=== PATIENT | female | born 1955 | race Hispanic/Latino ===

== ENCOUNTER 2018-02-22 16:35 | Emergency (ER) | payer MEDICAID, OTHER ==
--- NOTE | 2018-02-22 17:43 | RAD ---
CHEST PA AND LATERAL TWO VIEWS: 02/22/18 HISTORY: 62-year-old female with history of cough, congestion, and back pain. COMPARISON: None. FINDINGS: Heart size is within normal limits. The lungs are clear. No pneumonia, edema, or pleural effusion. IMPRESSION: Atherosclerosis of the aorta. No acute intrathoracic disease. POS: [facility]
== END 2018-02-22 18:20 | disposition home or self-care (01) ==
LOC: ERS 16:35
DX: J06.9 Acute upper respiratory infection, unspecified (principal); E11.9 Type 2 diabetes mellitus without complications; I10 Essential (primary) hypertension; E78.5 Hyperlipidemia, unspecified
CPT/HCPCS: 71046

== ENCOUNTER 2018-03-23 09:28 | Emergency (ER) | payer MEDICAID, OTHER ==
[2018-03-23] MEDS ORDERED: Lidocaine 4% Cream 5 GM TUBE w/ Tegaderm ONE (09:56)
[2018-03-23] MEDS ORDERED: traMADol HCl 50 MG TAB ONE (11:18)
== END 2018-03-23 11:21 | disposition home or self-care (01) ==
LOC: ERS 09:28
DX: L03.011 Cellulitis of right finger (principal)
CPT/HCPCS: 26010

== ENCOUNTER 2018-08-23 23:07 | Emergency (ER) | payer OTHER ==
[2018-08-23 23:34] LABS: Bilirubin Negative (Negative); Blood, Urine Large (Negative); Clarity CLOUDY (Clear); Glucose, Urine (Dipstick) 250 mg/dL (Negative); Leukocyte Large (Negative); Nitrite Positive (Negative); Protein, Urine (Dipstick) 100 mg/dL (Neg-Trace); Specific Gravity, Urine 1.007 (1.002-1.036); pH, Urine 6.5 (5.0-9.0)
[2018-08-23 23:37] LABS: Bacteria/HPF Rare-Few HPF (None Seen); Hyaline Casts/LPF 4-6 HYALINE CAST LPF (0-3 Hyaline)
[2018-08-23] MEDS ORDERED: cefTRIAXone\\ROCEPHIN 1 GM VIAL ONE (23:43)
[2018-08-23] MEDS ORDERED: Lidocaine 1% PF 5 ML VIAL ONE (23:45)
[2018-08-23] MEDS ORDERED: Phenazopyridine HCl 97.5 MG TABLET ONE (23:47)
[2018-08-23 23:56] LABS: #Eosinphils 0.1 thou/uL (0.0-0.7); #Lymphocytes 1.5 thou/uL (1.20-3.40); #Monocytes 0.7 thou/uL (0.11-0.59); #Neutrophils 6.2 thou/uL (1.40-6.50); %Basophils 0.5 % (0.0-1.0); %Eosinophils 1.7 % (0.0-10.0); %Lymphocytes 17.1 % (21.0-51.0); %Monocytes 7.9 % (0.0-10.0); %Neutrophils 72.8 % (42.0-75.0); Hemoglobin 12.6 g/dL (12.0-16.0); Mean Corpuscular Volume 85.4 fL (78.0-98.0); Mean Platelet Volume 6.9 fL (7.4-10.4); Platelet Count 235 thou/uL (130-400); RBC Distribution Width 11.8 % (11.5-14.5); Red Blood Cell (RBC) Count 4.33 mill/uL (4.20-5.40); White Blood Cell (WBC) Count 8.5 thou/uL (4.8-10.8)
[2018-08-24 00:16] LABS: ALT (SGPT) 23 U/L (8-55); AST (SGOT) 28 U/L (5-34); Albumin 3.8 g/dL (3.4-4.8); Alkaline Phosphatase 81 U/L (40-150); Anion Gap 15 mmol/L (10-20); BUN (Urea Nitrogen) 17 mg/dL (9.8-20.1); Bilirubin, Total 0.3 mg/dL (0.2-1.2); Calc. Creatinine Clearance 0 mL/min (70-130); Calcium 8.9 mg/dL (7.8-10.44); Carbon Dioxide 19 mmol/L (23-31); Chloride 98 mmol/L (98-107); Estimated GFR-MDRD 75; Globulin 3.8 g/dL (2.4-3.5); Glucose 263 mg/dL (80-115); Lipase 22 U/L (8-78); Potassium 3.9 mmol/L (3.5-5.1); Protein, Total 7.6 g/dL (6.0-8.3); Sodium 128 mmol/L (136-145)
== END 2018-08-24 00:47 | disposition home or self-care (01) ==
LOC: ERS 23:07
DX: N39.0 Urinary tract infection, site not specified (principal); E78.00 Pure hypercholesterolemia, unspecified; E11.9 Type 2 diabetes mellitus without complications; Z79.899 Other long term (current) drug therapy
CPT/HCPCS: 36415; 80053; 81003; 81015; 83690; 85025; 87086; 96372; J0696; J2001

== ENCOUNTER 2018-10-25 00:15 | Emergency (ER) | payer OTHER ==
[2018-10-25 01:12] LABS: Bilirubin Negative (Negative); Blood, Urine Small (Negative); Clarity CLEAR (Clear); Glucose, Urine (Dipstick) Negative (Negative); Leukocyte Moderate (Negative); Nitrite Negative (Negative); Protein, Urine (Dipstick) Negative (Neg-Trace); Urobilinogen 0.2 mg/dL (0.2-1.0)
[2018-10-25 01:13] LABS: Pathc Cast-AUWi Flag 0.29 (0-2.49)
[2018-10-25 01:30] LABS: RBC/HPF 0-3 HPF (0-3); Specific Gravity, Urine 1.002 (1.002-1.036); Squamous Epithelial 0-3 HPF (0-3)
[2018-10-25 01:31] LABS: Bacteria/HPF None Seen HPF (None Seen); Hyaline Casts/LPF NONE SEEN LPF (0-3 Hyaline); Renal Epithelial None Seen HPF (0-3); Transitional Epithelial NONE SEEN HPF (0-3)
== END 2018-10-25 02:30 | disposition home or self-care (01) ==
LOC: ERS 00:15
DX: N30.90 Cystitis, unspecified without hematuria (principal); E11.9 Type 2 diabetes mellitus without complications; E78.5 Hyperlipidemia, unspecified; Z79.4 Long term (current) use of insulin
CPT/HCPCS: 81003; 81015; 87086; 99283

== ENCOUNTER 2021-09-10 02:02 | Emergency (ER) | payer OTHER ==
[2021-09-10 03:24] LABS: Bacteria/HPF 3+ HPF (None Seen); Bilirubin Negative (Negative); Blood, Urine Trace (Negative); Clarity Turbid (Clear); Glucose, Urine (Dipstick) Normal (Negative); Ketone, Urine Negative (Negative); Leukocyte 500 Leu/uL (Negative); Nitrite Negative (Negative); Protein, Urine (Dipstick) Negative (Neg-Trace); RBC/HPF 0-3 HPF (0-3); Specific Gravity, Urine 1.003 (1.002-1.036); Squamous Epithelial 0-3 HPF (0-3); Urobilinogen Normal mg/dL (Less than 2); WBC/HPF Greater than 50 HPF (0-3)
[2021-09-10] MEDS ORDERED: Ciprofloxacin 500 MG TAB ONE (03:44)
[2021-09-10] MEDS ORDERED: Phenazopyridine HCl 100 MG TAB PO SCH (04:00)
== END 2021-09-10 04:07 | disposition home or self-care (01) ==
LOC: ERS 02:02
DX: N30.01 Acute cystitis with hematuria (principal); E11.9 Type 2 diabetes mellitus without complications; E78.5 Hyperlipidemia, unspecified; E78.00 Pure hypercholesterolemia, unspecified
CPT/HCPCS: 81003; 81015; 87077; 87086; 87186; 99284

== ENCOUNTER 2022-03-18 11:18 | Emergency (ER) | payer MEDICARE, OTHER, MEDICAID | END 2022-03-18 12:23 | disposition home or self-care (01) | LOC: ERS 11:18 | DX: K02.9 Dental caries, unspecified (principal); E11.9 Type 2 diabetes mellitus without complications; I10 Essential (primary) hypertension; E78.5 Hyperlipidemia, unspecified; E78.00 Pure hypercholesterolemia, unspecified; Z79.4 Long term (current) use of insulin | CPT/HCPCS: 99282 ==

== ENCOUNTER 2022-03-19 16:26 | Emergency (ER) | payer MEDICARE, OTHER ==
[2022-03-19] MEDS ORDERED: Lidocaine 1% w/Epinephrine 1:100K 20 ML VIAL ONE (18:51)
== END 2022-03-19 19:43 | disposition home or self-care (01) ==
LOC: ERS 16:26
DX: K04.7 Periapical abscess without sinus (principal); E11.9 Type 2 diabetes mellitus without complications; I10 Essential (primary) hypertension; E78.5 Hyperlipidemia, unspecified; E78.00 Pure hypercholesterolemia, unspecified; Z79.4 Long term (current) use of insulin
CPT/HCPCS: 41800

== ENCOUNTER 2022-04-20 10:26 | Emergency (ER) | payer OTHER, MEDICAID ==
[2022-04-20] MEDS ORDERED: Lidocaine 1% w/Epinephrine 1:100K 20 ML VIAL ONE (10:37)
[2022-04-20] MEDS ORDERED: Morphine 4 MG/ML VIAL ONE (10:46)
== END 2022-04-20 11:08 | disposition home or self-care (01) ==
LOC: ERS 10:26
DX: E11.649 Type 2 diabetes mellitus with hypoglycemia without coma (principal); L02.213 Cutaneous abscess of chest wall; E78.5 Hyperlipidemia, unspecified; E78.00 Pure hypercholesterolemia, unspecified; I10 Essential (primary) hypertension; Z79.4 Long term (current) use of insulin; Z86.16 Personal history of COVID-19; Z87.19 Personal history of other diseases of the digestive system
CPT/HCPCS: 10060; 36416; 87070; 87205; 96372; J2270

== ENCOUNTER 2023-08-07 20:31 | Emergency (ER) | payer MEDICARE, OTHER ==
[2023-08-07 20:59] LABS: #Basophils 0.1 thou/uL (0.0-0.2); #Eosinphils 0.1 thou/uL (0.0-0.7); #Monocytes 0.8 thou/uL (0.11-0.59); #Neutrophils 6.5 thou/uL (1.40-6.50); %Basophils 0.6 % (0.0-1.0); %Eosinophils 1.4 % (0.0-10.0); %Lymphocytes 17.4 % (21.0-51.0); %Monocytes 8.6 % (0.0-10.0); %Neutrophils 71.7 % (42.0-75.0); Hematocrit 38.7 % (36.0-47.0); Hemoglobin 13.1 g/dL (12.0-16.0); Mean Corpuscular HGB CONC 33.9 g/dL (32.0-36.0); Mean Corpuscular Hemoglobin 29.2 pg (27.0-31.0); Mean Corpuscular Volume 86.2 fl (78.0-98.0); Mean Platelet Volume 9.1 fL (7.4-10.4); Platelet Count 287 10x3/uL (130-400); RBC Distribution Width 12.1 % (11.5-14.5); Red Blood Cell (RBC) Count 4.49 mill/uL (4.20-5.40)
[2023-08-07 21:07] LABS: Bacteria/HPF 2+ HPF (None Seen); Bilirubin Negative (Negative); Blood, Urine Trace (Negative); CAUTI Indications for Culture Dysuria,urgency,freq; Clarity Turbid (Clear); Glucose, Urine (Dipstick) Normal (Negative); Ketone, Urine Negative (Negative); Leukocyte 500 Leu/uL (Negative); Nitrite Negative (Negative); Protein, Urine (Dipstick) 10 mg/dL (Neg-Trace); Renal Epithelial 0-3 HPF (None Seen); Specific Gravity, Urine 1.014 (1.002-1.036); Squamous Epithelial 0-3 HPF (0-3); Urobilinogen Normal mg/dL (Less than 2); WBC/HPF Greater than 50 HPF (0-3)
[2023-08-07 21:10] LABS: Urine Culture Reflex Yes Yes
[2023-08-07 21:18] LABS: ALT (SGPT) 23 U/L (8-55); AST (SGOT) 32 U/L (5-34); Albumin 4.6 g/dL (3.4-4.8); Alkaline Phosphatase 76 U/L (40-110); Anion Gap 15 mmol/L (10-20); BUN (Urea Nitrogen) 19 mg/dL (9.8-20.1); Bilirubin, Total 0.3 mg/dL (0.2-1.2); Calc. Creatinine Clearance 0 mL/min (70-130); Calcium 9.6 mg/dL (7.8-10.44); Carbon Dioxide 24 mmol/L (23-31); Chloride 101 mmol/L (98-107); Estimated GFR 80; Globulin 3.8 g/dL (2.4-3.5); Glucose 149 mg/dL (80-115); Lipase 18 U/L (8-78); Potassium 4.3 mmol/L (3.5-5.1); Protein, Total 8.4 g/dL (5.8-8.1); Sodium 136 mmol/L (136-145)
[2023-08-07] MEDS ORDERED: cefTRIAXone (ROCEPHIN) 1 GM VIAL ONE (21:48)
[2023-08-07] MEDS ORDERED: Acetaminophen 500 MG TAB ONE (21:48)
== END 2023-08-07 23:15 | disposition home or self-care (01) ==
LOC: ERS 20:31
DX: N39.0 Urinary tract infection, site not specified (principal); E11.9 Type 2 diabetes mellitus without complications; I10 Essential (primary) hypertension; E78.5 Hyperlipidemia, unspecified
CPT/HCPCS: 74022; 80053; 81001; 83690; 85025; 87077; 87086; 87186; 96365; J0696

== ENCOUNTER 2023-08-16 12:17 | Inpatient (IN) | payer OTHER ==
[2023-08-16] MEDS ORDERED: Morphine 4 MG/ML VIAL ONE (13:06)
[2023-08-16] MEDS ORDERED: Ondansetron PF 4 MG/2 ML Vial ONE ×2 (13:06→16:41)
[2023-08-16 13:19] LABS: #Basophils 0.1 thou/uL (0.0-0.2); #Eosinphils 0.1 thou/uL (0.0-0.7); #Monocytes 0.7 thou/uL (0.11-0.59); #Neutrophils 5.8 thou/uL (1.40-6.50); %Basophils 0.5 % (0.0-1.0); %Eosinophils 1.4 % (0.0-10.0); %Monocytes 7.2 % (0.0-10.0); %Neutrophils 57.6 % (42.0-75.0); Hematocrit 38.2 % (36.0-47.0); Hemoglobin 12.6 g/dL (12.0-16.0); Mean Corpuscular Hemoglobin 28.7 pg (27.0-31.0); Mean Platelet Volume 9.2 fL (7.4-10.4); Platelet Count 335 10x3/uL (130-400); RBC Distribution Width 12.2 % (11.5-14.5); Red Blood Cell (RBC) Count 4.39 mill/uL (4.20-5.40)
[2023-08-16 13:39] LABS: ALT (SGPT) 35 U/L (8-55); AST (SGOT) 42 U/L (5-34); Albumin 4.3 g/dL (3.4-4.8); Alkaline Phosphatase 71 U/L (40-110); Anion Gap 15 mmol/L (10-20); BUN (Urea Nitrogen) 14 mg/dL (9.8-20.1); Bilirubin, Total 0.5 mg/dL (0.2-1.2); Calc. Creatinine Clearance 0 mL/min (70-130); Calcium 9.9 mg/dL (7.8-10.44); Carbon Dioxide 22 mmol/L (23-31); Chloride 104 mmol/L (98-107); Estimated GFR 80; Globulin 3.1 g/dL (2.4-3.5); Glucose 155 mg/dL (80-115); Lipase 6 U/L (8-78); Potassium 4.3 mmol/L (3.5-5.1); Protein, Total 7.4 g/dL (5.8-8.1); Sodium 137 mmol/L (136-145)
[2023-08-16] MEDS ORDERED: Lidocaine 1% MPF 2 ML VIAL ONE (15:47)
[2023-08-16] MEDS ORDERED: CEFAZOLIN 2 GM in Sodium Chloride 0.9% 100 ML IVPB SCH (16:00)
[2023-08-16] MEDS ORDERED: fentaNYL 50 mcg/mL 1 mL Vial ONE (16:23)
[2023-08-16] MEDS ORDERED: Vasopressin 20 UNITS/ML VIAL ONE (16:23)
[2023-08-16] MEDS ORDERED: SUGAMMADEX SODIUM 200 MG/2 ML VIAL ONE (16:23)
[2023-08-16] MEDS ORDERED: Sodium Chloride 0.9% 100 ML ONE (16:27)
[2023-08-16] MEDS ORDERED: CEFAZOLIN 2 GM VIAL ONE (16:27)
[2023-08-16] MEDS ORDERED: PHENYLEPHRINE-NS 100 MCG/ML 10 ML SYRINGE ONE (16:41)
[2023-08-16] MEDS ORDERED: Dexamethasone 20 MG/5 ML VIAL ONE (16:41)
[2023-08-16] MEDS ORDERED: Lidocaine 1% PF 5 ML VIAL ONE (16:41)
[2023-08-16] MEDS ORDERED: Succinylcholine 200 MG/10 ml SYRINGE FS ONE (16:41)
[2023-08-16] MEDS ORDERED: PROPOFOL 200 MG/20 ML VIAL ONE (16:41)
[2023-08-16] MEDS ORDERED: Ondansetron PF 4 MG/2 ML Vial IVP PRN (17:37)
[2023-08-16] MEDS ORDERED: Morphine 2 MG/ML VIAL SLOW IVP PRN (17:37)
[2023-08-16] MEDS ORDERED: Ipratropium/Albuterol 3 ML NEB NEB PRN (17:37)
[2023-08-16] MEDS ORDERED: hydrALAZINE 20 MG/ML VIAL SLOW IVP PRN (17:37)
[2023-08-16] MEDS ORDERED: traMADol HCl 50 MG TAB PO PRN (17:40)
[2023-08-16] MEDS ORDERED: Promethazine HCl 25 MG/ML VIAL IM PRN (18:11)
[2023-08-16] MEDS ORDERED: Ondansetron HCl/PF 4 MG/2 ML Vial IVP PRN (18:11)
[2023-08-16] MEDS ORDERED: Morphine 4 MG/ML VIAL SLOW IVP PRN (18:38)
[2023-08-16] MEDS: traMADol HCl 50 MG TAB PO SCH (19:25)
[2023-08-16] MEDS: Sodium Chloride 0.9% 1,000 ML IV SCH (19:25)
[2023-08-16] MEDS: Acetaminophen 325 MG TAB PO SCH (19:25)
[2023-08-16 20:36] VITALS: BMI 36.1
[2023-08-16] MEDS: 1/2 NS w/KCL 20 mEq 1,000 ML IV SCH (21:31)
[2023-08-16] MEDS: CEFAZOLIN 2 GM in Sodium Chloride 0.9% 100 ML IVPB SCH (21:32)
[2023-08-16] MEDS: Famotidine/PF 20 mg/2ml Vial SLOW IVP SCH (21:32)
[2023-08-16] MEDS: Senokot S 8.6-50 MG TAB PO SCH (21:33)
[2023-08-17] MEDS: Acetaminophen 325 MG TAB PO SCH ×5 (00:33→23:18)
[2023-08-17] MEDS: traMADol HCl 50 MG TAB PO SCH ×5 (00:34→23:18)
[2023-08-17] MEDS: Sodium Chloride 0.9% 1,000 ML IV SCH ×2 (03:09→10:57)
[2023-08-17] MEDS: 1/2 NS w/KCL 20 mEq 1,000 ML IV SCH ×3 (04:39→22:10)
[2023-08-17 05:19] LABS: #Monocytes 0.2 thou/uL (0.11-0.59); %Basophils 0.1 % (0.0-1.0); %Lymphocytes 9.2 % (21.0-51.0); %Monocytes 1.9 % (0.0-10.0); %Neutrophils 88.3 % (42.0-75.0); Hematocrit 35.4 % (36.0-47.0); Hemoglobin 11.7 g/dL (12.0-16.0); Mean Corpuscular HGB CONC 33.1 g/dL (32.0-36.0); Mean Corpuscular Volume 87.8 fl (78.0-98.0); Mean Platelet Volume 9.4 fL (7.4-10.4); Platelet Count 303 10x3/uL (130-400); RBC Distribution Width 12.1 % (11.5-14.5); Red Blood Cell (RBC) Count 4.03 mill/uL (4.20-5.40); White Blood Cell (WBC) Count 7.9 10x3/uL (4.8-10.8)
[2023-08-17] MEDS: CEFAZOLIN 2 GM in Sodium Chloride 0.9% 100 ML IVPB SCH ×2 (05:38→13:57)
[2023-08-17 05:42] LABS: ALT (SGPT) 218 U/L (8-55); AST (SGOT) 269 U/L (5-34); Albumin 3.6 g/dL (3.4-4.8); Alkaline Phosphatase 85 U/L (40-110); Anion Gap 14 mmol/L (10-20); BUN (Urea Nitrogen) 16 mg/dL (9.8-20.1); Bilirubin, Total 0.5 mg/dL (0.2-1.2); Calc. Creatinine Clearance 76 mL/min (70-130); Calcium 8.6 mg/dL (7.8-10.44); Carbon Dioxide 23 mmol/L (23-31); Chloride 102 mmol/L (98-107); Estimated GFR 79; Globulin 2.6 g/dL (2.4-3.5); Glucose 275 mg/dL (80-115); Potassium 4.3 mmol/L (3.5-5.1); Protein, Total 6.2 g/dL (5.8-8.1); Sodium 135 mmol/L (136-145)
[2023-08-17] MEDS: Famotidine/PF 20 mg/2ml Vial SLOW IVP SCH ×2 (10:50→22:11)
[2023-08-17] MEDS: Senokot S 8.6-50 MG TAB PO SCH ×2 (10:53→22:11)
[2023-08-18] MEDS: Sodium Chloride 0.9% 1,000 ML IV SCH ×2 (04:48→04:49)
[2023-08-18] MEDS: traMADol HCl 50 MG TAB PO SCH ×4 (05:35→23:49)
[2023-08-18] MEDS: Acetaminophen 325 MG TAB PO SCH ×4 (05:36→23:48)
[2023-08-18] MEDS: 1/2 NS w/KCL 20 mEq 1,000 ML IV SCH ×2 (10:57→21:53)
[2023-08-18] MEDS: Famotidine/PF 20 mg/2ml Vial SLOW IVP SCH ×2 (11:02→21:50)
[2023-08-18] MEDS: Senokot S 8.6-50 MG TAB PO SCH ×2 (18:30→21:50)
[2023-08-19 05:59] LABS: #Eosinphils 0.2 thou/uL (0.0-0.7); #Monocytes 0.7 thou/uL (0.11-0.59); #Neutrophils 2.8 thou/uL (1.40-6.50); %Basophils 0.5 % (0.0-1.0); %Lymphocytes 37.5 % (21.0-51.0); %Neutrophils 46.7 % (42.0-75.0); Hematocrit 34.2 % (36.0-47.0); Mean Corpuscular HGB CONC 32.2 g/dL (32.0-36.0); Mean Corpuscular Hemoglobin 28.5 pg (27.0-31.0); Mean Corpuscular Volume 88.6 fl (78.0-98.0); Mean Platelet Volume 9.4 fL (7.4-10.4); Platelet Count 290 10x3/uL (130-400); RBC Distribution Width 12.3 % (11.5-14.5); Red Blood Cell (RBC) Count 3.86 mill/uL (4.20-5.40)
[2023-08-19 06:10] LABS: PTT 27.2 sec (22.9-36.1)
[2023-08-19 06:26] LABS: Anion Gap 12 mmol/L (10-20); BUN (Urea Nitrogen) 7 mg/dL (9.8-20.1); Calc. Creatinine Clearance 89 mL/min (70-130); Calcium 8.6 mg/dL (7.8-10.44); Carbon Dioxide 26 mmol/L (23-31); Chloride 103 mmol/L (98-107); Estimated GFR 94; Glucose 245 mg/dL (80-115); Magnesium 1.6 mg/dL (1.6-2.6); Phosphorus 2.2 mg/dL (2.3-4.7); Potassium 4.3 mmol/L (3.5-5.1); Sodium 137 mmol/L (136-145)
[2023-08-19] MEDS: Acetaminophen 325 MG TAB PO SCH ×3 (06:27→17:21)
[2023-08-19] MEDS: traMADol HCl 50 MG TAB PO SCH ×2 (06:28→12:28)
[2023-08-19] MEDS ORDERED: HumaLOG 300 UNITS/3 ML VIAL SC PRN (08:34)
[2023-08-19] MEDS ORDERED: Dextrose 5% in Water 1,000 ML IV PRN (08:34)
[2023-08-19] MEDS ORDERED: Glucagon 1 MG/ML KIT IM PRN (08:34)
[2023-08-19] MEDS ORDERED: Dextrose 50% Abboject 50 ML SYRINGE SLOW IVP PRN (08:34)
[2023-08-19] MEDS ORDERED: Magnesium Sulfate 4 GM, Sodium Phosphate 30 MMOL in Sodium Chloride 0.9% 250 ML 250 ML IVPB SCH (08:45)
[2023-08-19] MEDS: Senokot S 8.6-50 MG TAB PO SCH ×2 (09:37→22:00)
[2023-08-19] MEDS: Famotidine/PF 20 mg/2ml Vial SLOW IVP SCH ×2 (09:37→22:02)
[2023-08-19] MEDS: Polyethylene Glycol 3350 17 GM Packet PO SCH (09:37)
[2023-08-19] MEDS: Insulin Glargine 30 UNITS/0.3 ML VIAL SC SCH ×2 (09:45→22:02)
[2023-08-20] MEDS: Acetaminophen 325 MG TAB PO SCH ×2 (00:13→05:51)
[2023-08-20] MEDS ORDERED: FLU VACC QS2023(65UP)/MF59C/PF 60 MCG/0.5 ML SYRINGE IM ONE (03:00)
[2023-08-20] MEDS: Insulin Glargine 30 UNITS/0.3 ML VIAL SC SCH (08:53)
[2023-08-20] MEDS: Polyethylene Glycol 3350 17 GM Packet PO SCH (08:53)
[2023-08-20] MEDS: Senokot S 8.6-50 MG TAB PO SCH (08:53)
[2023-08-20] MEDS: Famotidine/PF 20 mg/2ml Vial SLOW IVP SCH (08:53)
[2023-08-20] MEDS ORDERED: Acetaminophen 325 MG TAB PO PRN (10:57)
[2023-08-20] MEDS ORDERED: traMADol HCl 50 MG TAB PO PRN (10:57)
[2023-08-20] MEDS ORDERED: Acetaminophen 500 MG TAB PO PRN (11:04)
[2023-08-20 11:48] VITALS: BP 138/77; TEMP 98.7
[2023-08-20] MEDS ORDERED: HumaLOG 300 UNITS/3 ML VIAL SC SCH (12:00)
[2023-08-20] MEDS ORDERED: Non-Formulary Item 1 EACH (Insulin Lispro [Insulin Lispro Kwikpen U-100] 100 UNIT/ML Insu SC SCH (12:00)
[2023-08-21] MEDS ORDERED: Fenofibrate 48 MG TAB PO SCH ×2 (09:00)
[2023-08-21] MEDS ORDERED: Atorvastatin Calcium 20 MG TAB PO SCH ×2 (09:00)
[2023-08-21] MEDS ORDERED: Lisinopril 20 MG TAB PO SCH (09:00)
== END 2023-08-20 13:26 | disposition home or self-care (01) | DRG 336 ==
LOC: ERS 12:17 → SURG A 14:45
PROVIDERS: ADMIT Student in an Organized Health Care Education/Training Program; ATTEND Student in an Organized Health Care Education/Training Program
PROC: 0DTJ0ZZ Resection of Appendix, Open Approach (ICD-10-PCS; principal; 2023-08-16)
PROC: 0DN80ZZ Release Small Intestine, Open Approach (ICD-10-PCS; 2023-08-16)
PROC: 0DQV0ZZ Repair Mesentery, Open Approach (ICD-10-PCS; 2023-08-16)
DX: K56.50 Intestinal adhesions [bands], unspecified as to partial versus complete obstruction (principal); K46.0 Unspecified abdominal hernia with obstruction, without gangrene; Z94.4 Liver transplant status; R18.8 Other ascites; E11.9 Type 2 diabetes mellitus without complications; E78.00 Pure hypercholesterolemia, unspecified; E66.01 Morbid (severe) obesity due to excess calories; E78.5 Hyperlipidemia, unspecified; Z98.890 Other specified postprocedural states; Z88.0 Allergy status to penicillin; Z68.36 Body mass index [BMI] 36.0-36.9, adult
CPT/HCPCS: 36415; 36416; 74176; 80048; 80053; 83605; 83690; 83735; 84100; 85025; 85610; 85730; 86850; 86900; 86901; 88304; 94760; 96374; 96375; A4314; J1100; J1642; J1650; J1815; J2270; J2405; J2704; J3010; J3475; J3480; J3490; J7050; S0028

== ENCOUNTER 2024-04-17 10:15 | Emergency (ER) | payer OTHER ==
[2024-04-17] MEDS ORDERED: Phenazopyridine HCl 100 MG TAB ONE (11:52)
[2024-04-17 12:35] LABS: Bilirubin Negative (Negative); Blood, Urine 3+ (Negative); CAUTI Indications for Culture Pelvic or flank pain; Clarity Extra Turbid (Clear); Glucose, Urine (Dipstick) Normal (Negative); Ketone, Urine Negative (Negative); Leukocyte 500 Leu/uL (Negative); Nitrite Negative (Negative); Protein, Urine (Dipstick) 200 mg/dL (Neg-Trace); RBC/HPF Greater than 50 HPF (0-3); Specific Gravity, Urine 1.016 (1.002-1.036); Urobilinogen Normal mg/dL (Less than 2); WBC/HPF Greater than 50 HPF (0-3); pH, Urine 6.5 (5.0-9.0)
[2024-04-17 13:02] LABS: Bacteria/HPF 1+ HPF (None Seen)
[2024-04-17 13:05] LABS: Urine Culture Reflex Yes Yes
== END 2024-04-17 13:15 | disposition home or self-care (01) ==
LOC: ERS 10:15
DX: N39.0 Urinary tract infection, site not specified (principal); I10 Essential (primary) hypertension; E11.9 Type 2 diabetes mellitus without complications; E78.5 Hyperlipidemia, unspecified; Z79.899 Other long term (current) drug therapy; Z75.8 Other problems related to medical facilities and other health care; Z79.4 Long term (current) use of insulin
CPT/HCPCS: 81001; 87086; 99283